=== PATIENT | female | born 1985 | race Caucasian/White ===

== ENCOUNTER 2018-08-27 15:14 | Outpatient (REF) | payer MEDICAID, SELFPAY ==
[2018-08-27 21:41] LABS: FREE T4 0.77 ng/dL (0.76-1.46); TSH 7.34 uIU/mL (0.358-3.74)
== END 2018-08-27 15:34 ==
LOC: NCHCN 15:14
PROVIDERS: PCP Family Medicine; Visit Provider Nurse Practitioner Family
DX: E03.9 Hypothyroidism, unspecified (principal); R63.1 Polydipsia; E66.9 Obesity, unspecified
CPT/HCPCS: 83036; 84439; 84443

== ENCOUNTER 2018-12-23 16:31 | Outpatient (REF) | payer MEDICAID, SELFPAY ==
[2018-12-23 21:30] LABS: Abs Immature Grans 0.02 k/cumm (0.0-0.09); Absolute Basophil Count 0.05 k/cumm (0.0-0.2); Absolute Eosinophil Count 0.13 k/cumm (0.0-0.7); Absolute Lymphocyte Count 2.48 k/cumm (1.2-3.4); Absolute Monocyte Count 0.46 k/cumm (0.11-0.7); Absolute Neutrophil Count 5.59 k/cumm (1.2-6.7); Basophils % 0.6; Eosinophils % 1.5; HCT 40.7 % (36.0-46.0); HGB 13.6 g/dL (12.0-15.5); Immature Grans % 0.2; Lymphocytes % 28.4; Mean Corp. HGB Concentration 33.4 g/dL (32.0-36.0); Mean Corpuscular Hemoglobin 30.8 pg (27.0-33.0); Mean Corpuscular Volume 92.1 fL (80-95); Mean Platelet Volume 9.5 fL (8.0-11.0); Monocytes % 5.3; Platelet Count 253 x1000/uL (130-400); RBC 4.42 m/cumm (4.00-5.20); RBC Distribution Width 12.5 % (11.7-14.6); White Blood Cell Count 8.73 k/cumm (4.4-10.8)
[2018-12-23 21:51] LABS: ALT 32 U/L (12-78); AST 21 U/L (15-37); Albumin 3.8 g/dL (3.4-5.0); Alkaline Phosphatase 100 U/L (46-116); Anion Gap 8.3 mmol/L (3-11); BUN 17 mg/dL (7-18); Bilirubin, Total 0.2 mg/dL (0.2-1.0); CO2 28.7 mmol/L (21.0-32.0); CREATININE 0.92 mg/dL (0.55-1.02); Calcium 8.9 mg/dL (8.5-10.1); Chloride 103 mmol/L (98-107); Glucose 96 mg/dL (70-100); Potassium 5.3 mmol/L (3.5-5.1); Sodium 140 mmol/L (136-145); TSH (W/Ref FT4) 5.82 uIU/mL (0.358-3.74); Total Protein 6.7 g/dL (6.4-8.2)
[2018-12-23 22:11] LABS: FREE T4 1.17 ng/dL (0.76-1.46)
== END 2018-12-23 16:51 ==
LOC: NCHCN 16:31
PROVIDERS: PCP Family Medicine; Visit Provider Family Medicine
DX: E03.9 Hypothyroidism, unspecified (principal); F31.81 Bipolar II disorder; R10.32 Left lower quadrant pain
CPT/HCPCS: 80053; 84439; 84443; 85025

== ENCOUNTER 2019-06-26 16:50 | Outpatient (REF) | payer MEDICAID, SELFPAY ==
[2019-06-26 21:19] LABS: Abs Immature Grans 0.02 k/cumm (0.0-0.09); Absolute Basophil Count 0.07 k/cumm (0.0-0.2); Absolute Eosinophil Count 0.26 k/cumm (0.0-0.7); Absolute Monocyte Count 0.62 k/cumm (0.11-0.7); Absolute Neutrophil Count 5.37 k/cumm (1.2-6.7); Basophils % 0.8; HCT 40.2 % (36.0-46.0); HGB 13.3 g/dL (12.0-15.5); Immature Grans % 0.2; Lymphocytes % 25.8; Mean Corp. HGB Concentration 33.1 g/dL (32.0-36.0); Mean Corpuscular Hemoglobin 30.9 pg (27.0-33.0); Mean Corpuscular Volume 93.3 fL (80-95); Mean Platelet Volume 9.8 fL (8.0-11.0); Monocytes % 7.3; Neutrophils % 62.9; Platelet Count 267 x1000/uL (130-400); RBC 4.31 m/cumm (4.00-5.20); RBC Distribution Width 13.3 % (11.7-14.6); White Blood Cell Count 8.54 k/cumm (4.4-10.8)
[2019-06-26 21:31] LABS: ALT 38 U/L (14-59); AST 28 U/L (15-37); Albumin 3.8 g/dL (3.4-5.0); Alkaline Phosphatase 94 U/L (46-116); Anion Gap 11.6 mmol/L (3-11); BUN 13 mg/dL (7-18); Bilirubin, Total 0.3 mg/dL (0.2-1.0); CO2 23.4 mmol/L (21.0-32.0); CREATININE 1.18 mg/dL (0.55-1.02); Calcium 8.4 mg/dL (8.5-10.1); Chloride 104 mmol/L (98-107); Estimated GFR 52.13 (mL/min/1.73m2); Glucose 106 mg/dL (70-100); Potassium 3.9 mmol/L (3.5-5.1); Sodium 139 mmol/L (136-145); TSH (W/Ref FT4) 2.79 uIU/mL (0.36-3.74); Total Protein 6.9 g/dL (6.4-8.2)
[2019-06-29 07:57] LABS: Vitamin D 25 Total 17.4 ng/ml (30-100)
== END 2019-06-26 17:10 ==
LOC: NCHCN 16:50
PROVIDERS: PCP Family Medicine; Visit Provider Family Medicine
DX: E03.9 Hypothyroidism, unspecified (principal); E55.9 Vitamin D deficiency, unspecified; R50.9 Fever, unspecified; E66.9 Obesity, unspecified
CPT/HCPCS: 80053; 82306; 84443; 85025

== ENCOUNTER 2022-09-19 15:55 | Outpatient (REF) | payer MEDICAID, SELFPAY ==
[2022-09-19 21:46] LABS: TSH 5.41 uIU/mL (0.36-3.74)
== END 2022-09-19 15:56 | disposition home or self-care (01) ==
LOC: NCHCN 15:55
PROVIDERS: PCP Family Medicine; Visit Provider Nurse Practitioner Family
DX: E03.9 Hypothyroidism, unspecified (principal)
CPT/HCPCS: 84443

== ENCOUNTER 2022-10-29 21:37 | Outpatient (REF) | payer MEDICAID, SELFPAY ==
--- OUTSIDE RECORDS SUMMARY | 2022-10-29 21:39 | XMS_ITS | CCD ---
:1985 Author Care Team Providers Name Role Phone JIMMY SHELL MD Attending Physician Unavailable Vital Signs Unknown or Not Available. Allergies Unknown or Not Available. Procedures Unknown or Not Available. History of Immunizations Unknown or Not Available. Problems Unknown or Not Available. Results THYROID TESTING CASCADE - Collect Date/T melanie: 05/23/2021 11:36 Test Name Code Test Result Test Units Test Ref Range TSH. 3014-8 3.373 uIU/mL L=0.360 H=3.740 Active Medications Unknown or Not Available. Medications Administered During Visit Unknown or Not Available. Encounters Encounter Diagnosis Diagnosis Code Start Date Hypothyroidism [id number] 05/23/2021 Social History Smoking Status Code Start Date End Date Current every day smoker [id number] Patient Decision Aids Unknown or Not Available. Discharge Instructions You were admitted to [facility] on 05/23/2021 11:16 with a principal diagnosis of Hypothyroidism, unspecified You had the following tests done: THYRO ID TESTING CASCADE You were discharged from [facility] on 05/23/2021 11:16 Should you have any questions prior to d ischarge, please contact a member of your healthcare team. If you have left the ho spital and have any questions, please contact your primary care physician. Chief Complaint and Reason For Visit Unknown or Not Available. Function Status Unknown or Not Available. Plan of Care Unknown or Not Available. Referral/Transition of Care Unknown or Not Available.
--- OUTSIDE RECORDS SUMMARY | 2022-10-29 21:39 | XMS_ITS | CCD ---
:1985 Author Care Team Providers Name Role Phone HENOK MAYNARD, MARINA HARTMAN Attending Physician Unavailable DONG MAYNARD, HERBIE Hall Er Physician 1 Unavailable Vital Signs Unknown or Not Available. Allergies Unknown or Not Available. Procedures Unknown or Not Available. History of Immunizations Unknown or Not Available. Problems Unknown or Not Available. Results Unknown or Not Available. Active Medications Unknown or Not Available. Medications Administered During Visit Unknown or Not Available. Encounters Encounter Diagnosis Diagnosis Code Start Date Toxic effect of venom of wasps, accidental [id number] 04/16/2021 (unintentional), initial encounter Social History Smoking Status Code Start Date End Date Current every day smoker [id number] Patient Decision Aids Unknown or Not Available. Discharge Instructions You were admitted to [facility] 01 on 04/16/2021 07:40 with a principal diagnosis of Toxic effect of venom of wa sps, accidental (unintentional), initial encounter You were discharged from [facility] 01 on 04/16/2021 08:23 Should you have any questions prior to d ischarge, please contact a member of your healthcare team. If you have left the ho spital and have any questions, please contact your primary care physician. Chief Complaint and Reason For Visit Chief Complaint Date of Onset SWOLLEN ARM FROM BUG BITE Function Status Unknown or Not Available. Plan of Care Unknown or Not Available. Referral/Transition of Care Unknown or Not Available.
[2022-10-29 22:04] LABS: Calculated LDL 100 mg/dL (<100); Cholesterol 231 mg/dL (<200); Glucose 116 mg/dL (74-106); HDL Cholesterol 60 mg/dL (40-60); TSH (W/Ref FT4) 5.28 uIU/mL (0.36-3.74); Triglyceride 359 mg/dL (<150)
[2022-10-29 22:23] LABS: FREE T4 0.88 ng/dL (0.76-1.46)
== END 2022-10-29 21:38 | disposition home or self-care (01) ==
LOC: NCHCN 21:37
PROVIDERS: PCP Family Medicine; Visit Provider Nurse Practitioner Family
DX: E03.9 Hypothyroidism, unspecified (principal); E66.9 Obesity, unspecified
CPT/HCPCS: 80061; 82947; 84439; 84443

== ENCOUNTER 2022-12-24 17:26 | Outpatient (REF) | payer MEDICAID, SELFPAY ==
[2022-12-24 15:20] LABS: TSH 1.81 uIU/mL (0.36-3.74)
[2022-12-24 15:39] LABS: Hemoglobin A1C 4.8 % (<5.7)
== END 2022-12-24 17:27 | disposition home or self-care (01) ==
LOC: NCHCN 17:26
PROVIDERS: PCP Family Medicine; Visit Provider Nurse Practitioner Family
DX: E03.9 Hypothyroidism, unspecified (principal); R73.9 Hyperglycemia, unspecified
CPT/HCPCS: 83036; 84443

== ENCOUNTER 2023-02-20 15:20 | Outpatient (REF) | payer MEDICAID, SELFPAY ==
[2023-02-20 15:10] LABS: ESR 2 mm/hr (0-20)
[2023-02-20 15:12] LABS: C-Reactive Protein 0.15 mg/dL (0.0-0.3)
== END 2023-02-20 15:21 | disposition home or self-care (01) ==
LOC: NCHCN 15:20
PROVIDERS: PCP Family Medicine; Visit Provider Nurse Practitioner Family
DX: M79.18 Myalgia, other site (principal)
CPT/HCPCS: 85652; 86140

== ENCOUNTER 2023-08-09 19:22 | Outpatient (REF) | payer MEDICAID, SELFPAY ==
[2023-08-09 21:03] LABS: Abs Immature Grans 0.02 10^3/uL (0.0-0.06); Absolute Basophil Count 0.08 10^3/uL (0.0-0.2); Absolute Eosinophil Count 0.27 10^3/uL (0.0-0.7); Absolute Lymphocyte Count 3.24 10^3/uL (1.2-3.4); Absolute Monocyte Count 0.43 10^3/uL (0.1-0.8); Absolute Neutrophil Count 4.81 10^3/uL (1.2-6.7); Basophils % 0.9; Eosinophils % 3.1; HCT 43.4 % (36.0-46.0); HGB 14.6 g/dL (11.2-15.7); Immature Grans % 0.2; Lymphocytes % 36.6; MCH 29.8 pg (27.0-33.0); MCHC 33.6 % (32.0-36.0); MCV 89 fL (80-95); MPV 9.4 fL (8.0-11.0); Monocytes % 4.9; Neutrophils % 54.3; Platelet Count 304 10^3/uL (130-400); RDW-SD 39.3 fL; WBC 8.85 10^3/uL (4.4-10.8)
[2023-08-09 21:22] LABS: Hemoglobin A1C 5.1 % (<5.7)
[2023-08-09 21:38] LABS: ALT 33 U/L (14-59); AST 19 U/L (15-37); Albumin 4.4 g/dL (3.4-5.0); Alkaline Phosphatase 69 U/L (46-116); Anion Gap 9.8 mmol/L (3-11); BUN 12 mg/dL (7-18); Bilirubin, Total 0.3 mg/dL (0.2-1.0); C-Reactive Protein 0.18 mg/dL (0.0-0.3); CO2 23.2 mmol/L (21.0-32.0); Calcium 9.3 mg/dL (8.5-10.1); Chloride 102 mmol/L (98-107); Estimated GFR 73.49 (mL/min/1.73m2); Glucose 132 mg/dL (74-106); Potassium 3.8 mmol/L (3.5-5.1); Sodium 135 mmol/L (136-145); TSH (W/Ref FT4) 2.01 uIU/mL (0.36-3.74); Total Protein 7.9 g/dL (6.4-8.2)
[2023-08-09 21:47] LABS: Vitamin D 25 Total 22.2 ng/mL (30-100)
[2023-08-10 11:29] LABS: ESR (LRH) 16 mm/hr
[2023-08-12 11:00] LABS: IgA 154 mg/dL (85-499); IgG 695 mg/dL (610-1616); IgM 193 mg/dL (35-242)
[2023-08-12 11:33] LABS: Lyme Ab w Rflx to Lyme Confirm Positive (Negative)
[2023-08-12 12:52] LABS: Lyme IgG Ab Positive (Negative); Lyme IgM Ab Negative (Negative)
[2023-08-13 14:53] LABS: Anaplasma phagocytophilum Negative (Negative); B. miyamotoi PCR Negative (Negative); Babesia divergens/MO-1 Negative (Negative); Babesia duncani Negative (Negative); Babesia microti Negative (Negative); Ehrlichia chaffeensis Negative (Negative); Ehrlichia ewingii/canis Negative (Negative); Ehrlichia muris eauclairensis Negative (Negative)
== END 2023-08-09 19:23 | disposition home or self-care (01) ==
LOC: NCHCN 19:22
PROVIDERS: PCP Family Medicine; Visit Provider Family Medicine
DX: R60.0 Localized edema (principal); R53.83 Other fatigue; E66.9 Obesity, unspecified
CPT/HCPCS: 80053; 82306; 82784; 85652; 86617; 87798; 83036; 84443; 85025; 86140; 86618

== ENCOUNTER 2023-08-26 13:20 | Outpatient (REF) | payer MEDICAID, SELFPAY | END 2023-08-26 13:21 | disposition home or self-care (01) | LOC: NCHCN 13:20 | PROVIDERS: PCP Family Medicine; Visit Provider Family Medicine | DX: E03.9 Hypothyroidism, unspecified (principal); R53.83 Other fatigue | CPT/HCPCS: 84439 ==

== ENCOUNTER 2023-09-03 18:22 | Outpatient (REF) | payer MEDICAID, SELFPAY ==
[2023-09-04 17:37] LABS: Rheumatoid Factor <8.6 IU/mL (<12.0)
[2023-09-05 09:47] LABS: Cyclic Citrullinated Peptide <2.5 U/mL (<5.0)
[2023-09-05 14:38] LABS: ANA Interpretation Negative (Negative)
== END 2023-09-03 18:23 | disposition home or self-care (01) ==
LOC: NCHCN 18:22
PROVIDERS: PCP Family Medicine; Visit Provider Nurse Practitioner Family
DX: M13.89 Other specified arthritis, multiple sites
CPT/HCPCS: 86200; 86038; 86431

== ENCOUNTER 2024-11-17 16:50 | Outpatient (REF) | payer MEDICAID, SELFPAY ==
--- NOTE | 2024-11-17 15:10 | PAPFT_PTH ---
PATIENT: Suzanne Pires LOC: [facility] U#:[id number] AGE/SX: 39/F ROOM: RE11/17/[address]: Molly Bullock : 1985 BED: DIS: 11/17/2024 SPEC #: [id number] RECD: 11/18/24 12:51 STATUS: KELSI REJustyna #: [id number] FREDDY: 11/17/24 15:[address]: Molly Bullock DEPT: [facility] Cytology RECD BY: Yashira Tim ENTERED: 11/18/24 12:51 SP TYPE: PAPFT OTHR DR: Michael Membreno Tissues: 1 - CX/ENDOCX FOR PAP SMEARS Procedures: PAP THIN PREP/[facility] Screening HPV DNA PROBE Comments: [id number] (HPV 16 & 18/45) (CHLAMYDIA/GC)
[2024-11-19 13:04] LABS: Chlamydia Result Negative (Negative); GC Result Negative (Negative)
== END 2024-11-17 16:51 | disposition home or self-care (01) ==
LOC: NCHCN 16:50
PROVIDERS: PCP Family Medicine; Visit Provider Nurse Practitioner Family
DX: Z12.4 Encounter for screening for malignant neoplasm of cervix (principal); Z00.00 Encounter for general adult medical examination without abnormal findings
CPT/HCPCS: 87491; 87591; 88142; 87624

== ENCOUNTER 2025-08-12 20:08 | Outpatient (REF) | payer MEDICAID, SELFPAY ==
[2025-08-12 18:26] LABS: TSH 2.76 uIU/mL (0.36-3.74)
== END 2025-08-12 20:09 | disposition home or self-care (01) ==
LOC: NCHCN 20:08
PROVIDERS: PCP Family Medicine; Visit Provider Nurse Practitioner Family
DX: E03.9 Hypothyroidism, unspecified (principal)
CPT/HCPCS: 84443